=== PATIENT | male | born 1970 | race African-American/Black ===

== ENCOUNTER 2017-08-09 09:34 | Emergency (ER) | payer MEDICAID, OTHER ==
[~2017-08-09] VITALS: Ht 177.8 cm; Wt 84.4 kg
[~2017-08-09 09:34] MED LIST: EFAV1TAB PO
[2017-08-09 09:35] VITALS: BP 155/109
== END 2017-08-09 10:18 | disposition home or self-care (01) ==
LOC: ED 10:00
DX: K02.9 Dental caries, unspecified (principal); F17.200 Nicotine dependence, unspecified, uncomplicated
CPT/HCPCS: 99283

== ENCOUNTER 2017-11-21 09:36 | Inpatient (IN) | payer OTHER ==
[~2017-11-21] VITALS: Ht 177.8 cm; Wt 87.3 kg
[2017-11-21] MEDS ORDERED: SODIUM CHLORIDE 0.9% 1,000ML IVBOLUS ONE ×2 (10:30→12:00)
[2017-11-21] MEDS ORDERED: SODIUM CHLORIDE FLUSH 10ML SYR IVF ONE ×2 (10:30→12:00)
[2017-11-21 10:44] LABS: MEAN CORPUSCULAR HEMOGLOBIN 28.7 pg (27.5-34.5); MEAN CORPUSCULAR HGB CONC 33.7 g/dL (33.2-36.2); MEAN CORPUSCULAR VOLUME 85.3 fL (81-97); MEAN PLATELET VOLUME 7.5 fL (7.4-10.4); PLATELET COUNT 403 x10^3/uL (130-400); RED BLOOD COUNT 4.56 x10^6/uL (4.38-5.82); RED CELL DISTRIBUTION WIDTH 14.4 % (9.4-14.8)
[2017-11-21 10:57] LABS: ALANINE AMINOTRANSFERASE 31 U/L (12-78); ANION GAP 5 mmol/L (5-15); CALCIUM 8.3 mg/dL (8.5-10.1); CHLORIDE 106 mmol/L (98-107); CREATININE 1.02 mg/dL (0.7-1.3)
[2017-11-21 10:59] LABS: ALKALINE PHOSPHATASE 113 U/L (45-117); BILIRUBIN,TOTAL 0.5 mg/dL (0.2-1.0); TOTAL PROTEIN 8.1 g/dL (6.4-8.2)
[2017-11-21 11:02] LABS: BASOPHILS % (AUTO) 0 % (0-1); EOSINOPHILS # (AUTO) 0.09 x10^3/uL (0-0.4); EOSINOPHILS % (AUTO) 1 % (1-7); LYMPHOCYTES # (AUTO) 1.97 x10^3/uL (1-3.4); LYMPHOCYTES % (AUTO) 11 % (22-44); MD SCAN; MONOCYTES # (AUTO) 1.19 x10^3/uL (0.2-0.8); MONOCYTES % (AUTO) 7 % (2-9); NEUTROPHILS # (AUTO) 14.19 x10^3/uL (1.8-6.8); NEUTROPHILS % (AUTO) 81 % (42-75)
[2017-11-21] MEDS ORDERED: EMTR1TAB14 PO (11:28)
[2017-11-21] MEDS ORDERED: DOLU50TA PO (11:28)
[2017-11-21] MEDS ORDERED: SODIUM CHLORIDE 0.9% 1,000 ML IV ONE (11:56)
[2017-11-21] MEDS ORDERED: MORPHINE SULFATE 4 MG/ML, 1ML IVPush PRN (12:00)
[2017-11-21] MEDS ORDERED: ONDANSETRON 2MG/ML, 2ML IVPush ONE (12:00)
[2017-11-21] MEDS ORDERED: VANCOMYCIN PER PHARMACY IV ONE (12:00)
[2017-11-21] MEDS ORDERED: ONDANSETRON 2MG/ML, 2ML ONE (12:06)
[2017-11-21] MEDS ORDERED: MORPHINE SULFATE 4 MG/ML, 1ML ONE (12:06)
[2017-11-21] MEDS: ACETAMINOPHEN 325 MG TABLET PO PRN (12:20)
[2017-11-21] MEDS ORDERED: ACETAMINOPHEN 650 MG SUPP ONE (12:22)
[2017-11-21] MEDS ORDERED: ONDANSETRON 2MG/ML, 2ML IVPush PRN (12:30)
[2017-11-21] MEDS ORDERED: morphine SULFATE 10 MG/ML, 1ML IVPush PRN (12:30)
[2017-11-21] MEDS ORDERED: POLYETHYLENE GLYCOL 17 GM PACKET PO PRN (12:30)
[2017-11-21] MEDS ORDERED: PHARMACOKINETIC CONSULTATION MC ONE ×2 (12:30→14:00)
[2017-11-21] MEDS ORDERED: ACETAMINOPHEN 500 MG TABLET PO ONE (12:30)
[2017-11-21] MEDS ORDERED: BISACODYL 10 MG SUPP PR PRN (12:30)
[2017-11-21] MEDS ORDERED: ENALAPRILAT 1.25 MG/ML, 2ML IVPush PRN (12:30)
[2017-11-21] MEDS ORDERED: DOCUSATE 100 MG CAPSULE PO PRN (12:30)
[2017-11-21 12:47] LABS: HCT (SEDRATE) 38.9 % (39.2-51.8)
[2017-11-21] MEDS ORDERED: VANCOMYCIN 1,600 MG in SODIUM CHLORIDE 0.9% 250 ML IV ONE (13:00)
[2017-11-21] MEDS ORDERED: VANCOMYCIN PER PHARMACY MC PRN (13:00)
[2017-11-21 13:15] VITALS: BP 134/87
[2017-11-21] MEDS ORDERED: PHARMACOKINETIC MONITORING MC PRN (14:00)
[2017-11-21] MEDS: NS + 20MEQ KCL 1,000 ML IV SCH (15:06)
[2017-11-21] MEDS: PIPERACILLIN/TAZO/PMX 3.375GM 50 ML IV SCH ×2 (15:06→22:46)
[2017-11-21] MEDS ORDERED: MIDAZOLAM 1 MG/ML, 2ML ONE (17:37)
[2017-11-21] MEDS ORDERED: FENTANYL PF 100 MCG/2ML ONE (17:37)
[2017-11-21] MEDS ORDERED: OXYcodone 5 MG/5 ML ORAL.SOL UDC PO PRN (18:00)
[2017-11-21] MEDS ORDERED: ACETAMINOPHEN 325 MG TABLET PO PRN (18:00)
[2017-11-21] MEDS ORDERED: PROMETHAZINE 25 MG/ML, 1ML IV PRN (18:00)
[2017-11-21] MEDS ORDERED: HYDROmorphone 1 MG/ML, 1ML IV PRN (18:00)
[2017-11-21] MEDS ORDERED: FENTANYL PF 100 MCG/2ML IV PRN (18:00)
[2017-11-21] MEDS ORDERED: PROPOFOL 10 MG/ML, 20ML ONE ×2 (18:06)
[2017-11-21] MEDS ORDERED: HYDROmorphone 2 MG/ML, 1ML ONE ×3 (19:17→19:35)
[2017-11-21] MEDS ORDERED: OXYcodone 5 MG/5 ML ORAL.SOL UDC ONE (19:35)
[2017-11-21] MEDS ORDERED: ACETAMINOPHEN 650 MG/20.3 ML UDC ONE (19:35)
[2017-11-21 20:59] VITALS: BP 99/64
[2017-11-21] MEDS: HYDROcodone/APAP 5/325 TABLET PO PRN (22:46)
[2017-11-22 00:29] VITALS: BP 110/65
[2017-11-22] MEDS: VANCOMYCIN 1,600 MG in SODIUM CHLORIDE 0.9% 250 ML IV SCH ×2 (01:02→12:49)
[2017-11-22 04:34] VITALS: BP 104/68
[2017-11-22] MEDS: PIPERACILLIN/TAZO/PMX 3.375GM 50 ML IV SCH ×4 (05:17→22:28)
[2017-11-22 05:28] LABS: ALBUMIN 2.4 g/dL (3.4-5.0); ANION GAP 8 mmol/L (5-15); CHLORIDE 104 mmol/L (98-107)
[2017-11-22 05:32] LABS: ALANINE AMINOTRANSFERASE 20 U/L (12-78); ALKALINE PHOSPHATASE 91 U/L (45-117); BILIRUBIN,TOTAL 0.7 mg/dL (0.2-1.0); CREATININE 1.05 mg/dL (0.7-1.3)
[2017-11-22 05:39] LABS: MEAN CORPUSCULAR HEMOGLOBIN 29.1 pg (27.5-34.5); MEAN CORPUSCULAR HGB CONC 33.3 g/dL (33.2-36.2); MEAN CORPUSCULAR VOLUME 87.4 fL (81-97); MEAN PLATELET VOLUME 7.8 fL (7.4-10.4); PLATELET COUNT 341 x10^3/uL (130-400); RED BLOOD COUNT 3.94 x10^6/uL (4.38-5.82); RED CELL DISTRIBUTION WIDTH 13.9 % (9.4-14.8)
[2017-11-22 06:01] LABS: BASOPHILS # (AUTO) 0.05 x10^3/uL (0-0.1); BASOPHILS % (AUTO) 0 % (0-1); EOSINOPHILS # (AUTO) 0.09 x10^3/uL (0-0.4); EOSINOPHILS % (AUTO) 1 % (1-7); LYMPHOCYTES # (AUTO) 2.37 x10^3/uL (1-3.4); LYMPHOCYTES % (AUTO) 14 % (22-44); MD SCAN; MONOCYTES # (AUTO) 1.51 x10^3/uL (0.2-0.8); MONOCYTES % (AUTO) 9 % (2-9); NEUTROPHILS # (AUTO) 13.59 x10^3/uL (1.8-6.8); NEUTROPHILS % (AUTO) 77 % (42-75)
[2017-11-22 07:19] VITALS: BP 103/66
[2017-11-22] MEDS: ACETAMINOPHEN 325 MG TABLET PO PRN (07:30)
[2017-11-22] MEDS: NS + 20MEQ KCL 1,000 ML IV SCH ×2 (08:44→22:28)
[2017-11-22] MEDS: DOLUTEGRAVIR SODIUM HOMEMEDPO SCH (08:44)
[2017-11-22] MEDS: TIVICAY 50 MG HOMEMEDPO SCH (09:00)
[2017-11-22] MEDS: HYDROcodone/APAP 5/325 TABLET PO PRN ×2 (12:55→22:28)
[2017-11-22 13:02] VITALS: BP 113/73
[2017-11-22 19:20] VITALS: BP 126/77
[2017-11-23] MEDS: VANCOMYCIN 1,600 MG in SODIUM CHLORIDE 0.9% 250 ML IV SCH ×2 (00:47→13:00)
[2017-11-23 01:56] VITALS: BP 100/62
[2017-11-23] MEDS: PIPERACILLIN/TAZO/PMX 3.375GM 50 ML IV SCH ×4 (05:17→22:59)
[2017-11-23 05:27] LABS: BASOPHILS # (AUTO) 0.04 x10^3/uL (0-0.1); BASOPHILS % (AUTO) 0 % (0-1); EOSINOPHILS # (AUTO) 0.18 x10^3/uL (0-0.4); EOSINOPHILS % (AUTO) 1 % (1-7); LYMPHOCYTES # (AUTO) 2.18 x10^3/uL (1-3.4); LYMPHOCYTES % (AUTO) 14 % (22-44); MD NO; MEAN CORPUSCULAR HGB CONC 33.2 g/dL (33.2-36.2); MEAN CORPUSCULAR VOLUME 87.1 fL (81-97); MEAN PLATELET VOLUME 7.6 fL (7.4-10.4); MONOCYTES # (AUTO) 1.37 x10^3/uL (0.2-0.8); MONOCYTES % (AUTO) 9 % (2-9); NEUTROPHILS # (AUTO) 11.82 x10^3/uL (1.8-6.8); NEUTROPHILS % (AUTO) 76 % (42-75); PLATELET COUNT 371 x10^3/uL (130-400); RED CELL DISTRIBUTION WIDTH 13.8 % (9.4-14.8)
[2017-11-23 05:33] LABS: ANION GAP 7 mmol/L (5-15); CALCIUM 8.2 mg/dL (8.5-10.1); CHLORIDE 107 mmol/L (98-107); CREATININE 0.99 mg/dL (0.7-1.3)
[2017-11-23] MEDS: DOLUTEGRAVIR SODIUM HOMEMEDPO SCH (08:06)
[2017-11-23 08:25] VITALS: BP 121/72
[2017-11-23] MEDS: TIVICAY 50 MG HOMEMEDPO SCH (09:00)
[2017-11-23] MEDS: HYDROcodone/APAP 5/325 TABLET PO PRN ×2 (11:04→19:16)
[2017-11-23] MEDS ORDERED: VANCOMYCIN 1,800 MG in SODIUM CHLORIDE 0.9% 250 ML IV SCH (13:30)
[2017-11-23] MEDS: NS + 20MEQ KCL 1,000 ML IV SCH (14:25)
[2017-11-23 14:48] VITALS: BP 107/70
[2017-11-23] MEDS: VANCOMYCIN 1,800 MG in SODIUM CHLORIDE 0.9% 250 ML IV SCH (15:33)
[2017-11-23 18:51] VITALS: BP 145/78
[2017-11-24] MEDS: NS + 20MEQ KCL 1,000 ML IV SCH ×2 (01:33→15:13)
[2017-11-24 03:47] VITALS: BP 129/74
[2017-11-24] MEDS: VANCOMYCIN 1,800 MG in SODIUM CHLORIDE 0.9% 250 ML IV SCH ×2 (03:50→15:25)
[2017-11-24] MEDS: HYDROcodone/APAP 5/325 TABLET PO PRN ×3 (03:53→21:48)
[2017-11-24] MEDS: PIPERACILLIN/TAZO/PMX 3.375GM 50 ML IV SCH ×3 (05:32→17:30)
[2017-11-24 05:51] LABS: CHLORIDE 107 mmol/L (98-107); HCT (SEDRATE) 33.8 % (39.2-51.8)
[2017-11-24 05:53] LABS: MEAN CORPUSCULAR HEMOGLOBIN 29.1 pg (27.5-34.5); MEAN CORPUSCULAR HGB CONC 33.3 g/dL (33.2-36.2); MEAN CORPUSCULAR VOLUME 87.2 fL (81-97); MEAN PLATELET VOLUME 7.6 fL (7.4-10.4); PLATELET COUNT 430 x10^3/uL (130-400); RED BLOOD COUNT 3.86 x10^6/uL (4.38-5.82); RED CELL DISTRIBUTION WIDTH 13.7 % (9.4-14.8)
[2017-11-24 06:05] LABS: ALANINE AMINOTRANSFERASE 15 U/L (12-78); ALBUMIN 2.1 g/dL (3.4-5.0); ALKALINE PHOSPHATASE 107 U/L (45-117); ANION GAP 7 mmol/L (5-15); BILIRUBIN,TOTAL 0.4 mg/dL (0.2-1.0); CREATININE 0.98 mg/dL (0.7-1.3)
[2017-11-24 06:32] LABS: BASOPHILS # (AUTO) 0.02 x10^3/uL (0-0.1); BASOPHILS % (AUTO) 0 % (0-1); EOSINOPHILS # (AUTO) 0.19 x10^3/uL (0-0.4); EOSINOPHILS % (AUTO) 1 % (1-7); LYMPHOCYTES # (AUTO) 2.49 x10^3/uL (1-3.4); LYMPHOCYTES % (AUTO) 16 % (22-44); MD SCAN; MONOCYTES # (AUTO) 1.13 x10^3/uL (0.2-0.8); MONOCYTES % (AUTO) 7 % (2-9); NEUTROPHILS # (AUTO) 11.45 x10^3/uL (1.8-6.8); NEUTROPHILS % (AUTO) 75 % (42-75)
[2017-11-24 06:55] VITALS: BP 113/72
[2017-11-24] MEDS: TIVICAY 50 MG HOMEMEDPO SCH (08:47)
[2017-11-24] MEDS: DOLUTEGRAVIR SODIUM HOMEMEDPO SCH (08:47)
[2017-11-24 13:40] VITALS: BP 122/75
[2017-11-24] MEDS: CLINDAMYCIN PMX 900MG/50ML 50 ML IV SCH (21:00)
[2017-11-24] MEDS: AMPICILLIN/SULBACTAM 3 GM in SODIUM CHLORIDE 0.9% 100 ML IV SCH (21:48)
[2017-11-24 22:55] VITALS: BP 123/79
[2017-11-25 01:49] VITALS: BP 111/69
[2017-11-25] MEDS: AMPICILLIN/SULBACTAM 3 GM in SODIUM CHLORIDE 0.9% 100 ML IV SCH ×4 (03:14→21:24)
[2017-11-25] MEDS: CLINDAMYCIN PMX 900MG/50ML 50 ML IV SCH ×3 (06:24→22:04)
[2017-11-25 08:20] VITALS: BP 120/73
[2017-11-25] MEDS: HYDROcodone/APAP 5/325 TABLET PO PRN ×2 (08:29→14:23)
[2017-11-25] MEDS: DOLUTEGRAVIR SODIUM HOMEMEDPO SCH (09:46)
[2017-11-25 13:00] VITALS: BP 126/76
[2017-11-25] MEDS ORDERED: NS + 20MEQ KCL 1,000 ML IV SCH (13:12)
[2017-11-25] MEDS ORDERED: MORPHINE SULFATE 4 MG/ML, 1ML ONE (16:16)
[2017-11-25] MEDS ORDERED: MORPHINE SULFATE 4 MG/ML, 1ML IVPush PRN (16:30)
[2017-11-25] MEDS ORDERED: morphine SULFATE ORAL.CONC 20 MG/ML PO PRN (16:30)
[2017-11-25] MEDS: KETOROLAC 30 MG/1 ML IVPush SCH ×3 (17:00→23:28)
[2017-11-25] MEDS: ENOXAPARIN 40 MG/0.4 ML SQ SCH (18:31)
[2017-11-25 20:07] VITALS: BP 129/74
[2017-11-26 01:37] VITALS: BP 128/78
[2017-11-26] MEDS: AMPICILLIN/SULBACTAM 3 GM in SODIUM CHLORIDE 0.9% 100 ML IV SCH ×4 (03:00→22:22)
[2017-11-26] MEDS: KETOROLAC 30 MG/1 ML IVPush SCH ×4 (04:47→22:30)
[2017-11-26] MEDS: CLINDAMYCIN PMX 900MG/50ML 50 ML IV SCH ×2 (05:00→17:53)
[2017-11-26 06:18] LABS: BASOPHILS # (AUTO) 0.05 x10^3/uL (0-0.1); BASOPHILS % (AUTO) 1 % (0-1); EOSINOPHILS # (AUTO) 0.38 x10^3/uL (0-0.4); EOSINOPHILS % (AUTO) 3 % (1-7); LYMPHOCYTES # (AUTO) 2.33 x10^3/uL (1-3.4); LYMPHOCYTES % (AUTO) 20 % (22-44); MD NO; MEAN CORPUSCULAR HEMOGLOBIN 28.7 pg (27.5-34.5); MEAN CORPUSCULAR HGB CONC 33.5 g/dL (33.2-36.2); MEAN CORPUSCULAR VOLUME 85.7 fL (81-97); MEAN PLATELET VOLUME 7.3 fL (7.4-10.4); MONOCYTES # (AUTO) 0.85 x10^3/uL (0.2-0.8); MONOCYTES % (AUTO) 7 % (2-9); NEUTROPHILS # (AUTO) 7.86 x10^3/uL (1.8-6.8); NEUTROPHILS % (AUTO) 69 % (42-75); PLATELET COUNT 535 x10^3/uL (130-400); RED BLOOD COUNT 4.44 x10^6/uL (4.38-5.82); RED CELL DISTRIBUTION WIDTH 14.3 % (9.4-14.8)
[2017-11-26 07:13] VITALS: BP 100/67
[2017-11-26] MEDS: DOLUTEGRAVIR SODIUM HOMEMEDPO SCH (09:17)
[2017-11-26 16:51] VITALS: BP 129/78
[2017-11-26] MEDS: ENOXAPARIN 40 MG/0.4 ML SQ SCH (17:52)
[2017-11-26] MEDS ORDERED: SODIUM CHLORIDE FLUSH 10ML SYR IVF PRN (18:00)
[2017-11-26] MEDS ORDERED: PICC FLUSH PROTOCOL XX PRN (18:00)
[2017-11-26] MEDS ORDERED: MIDAZOLAM 1 MG/ML, 2ML ONE (20:49)
[2017-11-26] MEDS ORDERED: SUFentanil 50 MCG/ML, 1ML ONE (20:50)
[2017-11-26] MEDS ORDERED: SODIUM CHLORIDE 0.9% PF 10ML ONE (20:50)
[2017-11-26] MEDS ORDERED: PROPOFOL 10 MG/ML, 20ML ONE (20:51)
[2017-11-26] MEDS ORDERED: LIDOCAINE-MPF 2% ,5ML ONE (20:51)
[2017-11-26] MEDS ORDERED: KETAMINE 10 MG/ML, 20ML ONE (21:00)
[2017-11-26] MEDS ORDERED: ACETAMINOPHEN 650 MG/20.3 ML UDC ONE (21:40)
[2017-11-26] MEDS ORDERED: OXYcodone 5 MG/5 ML ORAL.SOL UDC ONE (21:40)
[2017-11-26] MEDS ORDERED: ACETAMINOPHEN 325 MG TABLET PO PRN (22:00)
[2017-11-26] MEDS ORDERED: PROMETHAZINE 12.5 MG SUPP PR PRN (22:00)
[2017-11-26] MEDS ORDERED: MEPERIDINE/PF 25MG/0.5ML IVPush PRN (22:00)
[2017-11-26] MEDS ORDERED: LORazepam 2 MG/ML, 1ML IVPush PRN (22:00)
[2017-11-26] MEDS ORDERED: FENTANYL PF 100 MCG/2ML IV PRN (22:00)
[2017-11-26] MEDS ORDERED: ONDANSETRON 2MG/ML, 2ML IVPush PRN (22:00)
[2017-11-26] MEDS ORDERED: OXYcodone 5 MG/5 ML ORAL.SOL UDC PO PRN (22:00)
[2017-11-26] MEDS ORDERED: HYDROmorphone 1 MG/ML, 1ML IV PRN (22:00)
[2017-11-26 22:31] VITALS: BP 132/84
[2017-11-27 00:10] VITALS: BP 123/74
[2017-11-27] MEDS: CLINDAMYCIN PMX 900MG/50ML 50 ML IV SCH ×2 (01:01→09:41)
[2017-11-27 03:46] VITALS: BP 108/71
[2017-11-27] MEDS: AMPICILLIN/SULBACTAM 3 GM in SODIUM CHLORIDE 0.9% 100 ML IV SCH ×4 (04:02→23:17)
[2017-11-27] MEDS: KETOROLAC 30 MG/1 ML IVPush SCH (05:00)
[2017-11-27 05:48] LABS: ANION GAP 9 mmol/L (5-15); CALCIUM 8.5 mg/dL (8.5-10.1); CHLORIDE 105 mmol/L (98-107)
[2017-11-27 05:50] LABS: BASOPHILS # (AUTO) 0.01 x10^3/uL (0-0.1); BASOPHILS % (AUTO) 0 % (0-1); EOSINOPHILS # (AUTO) 0.44 x10^3/uL (0-0.4); EOSINOPHILS % (AUTO) 5 % (1-7); LYMPHOCYTES # (AUTO) 1.88 x10^3/uL (1-3.4); LYMPHOCYTES % (AUTO) 21 % (22-44); MD NO; MEAN CORPUSCULAR HEMOGLOBIN 28.9 pg (27.5-34.5); MEAN CORPUSCULAR HGB CONC 33.5 g/dL (33.2-36.2); MEAN CORPUSCULAR VOLUME 86.3 fL (81-97); MONOCYTES # (AUTO) 0.54 x10^3/uL (0.2-0.8); MONOCYTES % (AUTO) 6 % (2-9); NEUTROPHILS # (AUTO) 6.17 x10^3/uL (1.8-6.8); NEUTROPHILS % (AUTO) 68 % (42-75); PLATELET COUNT 537 x10^3/uL (130-400); RED BLOOD COUNT 4.08 x10^6/uL (4.38-5.82)
[2017-11-27 05:51] LABS: CREATININE 1.23 mg/dL (0.7-1.3)
[2017-11-27 07:55] VITALS: BP 123/80
[2017-11-27] MEDS: DOLUTEGRAVIR SODIUM HOMEMEDPO SCH (09:41)
[2017-11-27] MEDS: ACETAMINOPHEN 325 MG TABLET PO PRN ×2 (10:00→18:51)
[2017-11-27] MEDS ORDERED: KETOROLAC 30 MG/1 ML IVPush PRN (11:00)
[2017-11-27 14:12] VITALS: BP 123/76
[2017-11-27] MEDS: ENOXAPARIN 40 MG/0.4 ML SQ SCH (17:45)
[2017-11-27 21:10] VITALS: BP 136/87
[2017-11-28 02:58] VITALS: BP 119/79
[2017-11-28] MEDS: AMPICILLIN/SULBACTAM 3 GM in SODIUM CHLORIDE 0.9% 100 ML IV SCH ×4 (05:29→23:05)
[2017-11-28 05:51] LABS: ANION GAP 6 mmol/L (5-15); CHLORIDE 103 mmol/L (98-107)
[2017-11-28 05:53] LABS: BASOPHILS % (AUTO) 1 % (0-1); CREATININE 1.07 mg/dL (0.7-1.3); EOSINOPHILS # (AUTO) 0.52 x10^3/uL (0-0.4); EOSINOPHILS % (AUTO) 5 % (1-7); LYMPHOCYTES # (AUTO) 2.36 x10^3/uL (1-3.4); LYMPHOCYTES % (AUTO) 24 % (22-44); MD NO; MEAN CORPUSCULAR HEMOGLOBIN 28.8 pg (27.5-34.5); MEAN CORPUSCULAR HGB CONC 33.4 g/dL (33.2-36.2); MEAN CORPUSCULAR VOLUME 86.1 fL (81-97); MONOCYTES # (AUTO) 0.66 x10^3/uL (0.2-0.8); MONOCYTES % (AUTO) 7 % (2-9); NEUTROPHILS # (AUTO) 6.28 x10^3/uL (1.8-6.8); NEUTROPHILS % (AUTO) 63 % (42-75); PLATELET COUNT 611 x10^3/uL (130-400); RED BLOOD COUNT 4.44 x10^6/uL (4.38-5.82); RED CELL DISTRIBUTION WIDTH 14.1 % (9.4-14.8)
[2017-11-28 07:34] VITALS: BP 128/80
[2017-11-28] MEDS: DOLUTEGRAVIR SODIUM HOMEMEDPO SCH (09:00)
[2017-11-28] MEDS: ACETAMINOPHEN 325 MG TABLET PO PRN (10:50)
[2017-11-28 13:10] VITALS: BP 117/82
[2017-11-28] MEDS: ENOXAPARIN 40 MG/0.4 ML SQ SCH (17:03)
[2017-11-28 20:13] VITALS: BP 128/71
[2017-11-29 02:22] VITALS: BP 106/70
[2017-11-29] MEDS: AMPICILLIN/SULBACTAM 3 GM in SODIUM CHLORIDE 0.9% 100 ML IV SCH ×4 (05:10→22:44)
[2017-11-29 06:31] VITALS: BP 112/68
[2017-11-29] MEDS: DOLUTEGRAVIR SODIUM HOMEMEDPO SCH (09:00)
[2017-11-29 14:04] VITALS: BP 123/79
[2017-11-29] MEDS: ENOXAPARIN 40 MG/0.4 ML SQ SCH (17:31)
[2017-11-29 19:55] VITALS: BP 119/73
[2017-11-30 00:57] VITALS: BP 109/69
[2017-11-30] MEDS: AMPICILLIN/SULBACTAM 3 GM in SODIUM CHLORIDE 0.9% 100 ML IV SCH ×4 (05:24→22:40)
[2017-11-30] MEDS: DOLUTEGRAVIR SODIUM HOMEMEDPO SCH (09:00)
[2017-11-30 09:15] VITALS: BP 126/76
[2017-11-30 12:37] VITALS: BP 119/73
[2017-11-30] MEDS: ENOXAPARIN 40 MG/0.4 ML SQ SCH (17:30)
[2017-11-30 20:16] VITALS: BP 120/72
[2017-12-01 03:20] VITALS: BP 106/70
[2017-12-01] MEDS: AMPICILLIN/SULBACTAM 3 GM in SODIUM CHLORIDE 0.9% 100 ML IV SCH (05:17)
[2017-12-01 07:48] VITALS: BP 110/74
[2017-12-01] MEDS: AMOXICILLIN/CLAV 875-125MG TABLET PO SCH ×3 (08:37→23:38)
[2017-12-01] MEDS: DOLUTEGRAVIR SODIUM HOMEMEDPO SCH (08:38)
[2017-12-01] MEDS: ENOXAPARIN 40 MG/0.4 ML SQ SCH (08:41)
[2017-12-01] MEDS: ACETAMINOPHEN 325 MG TABLET PO PRN (14:07)
[2017-12-01 14:10] VITALS: BP 118/72
[2017-12-01 19:31] VITALS: BP 123/76
[2017-12-02 01:14] VITALS: BP 105/62
[2017-12-02 05:33] LABS: BASOPHILS # (AUTO) 0.22 x10^3/uL (0-0.1); BASOPHILS % (AUTO) 3 % (0-1); EOSINOPHILS # (AUTO) 0.26 x10^3/uL (0-0.4); EOSINOPHILS % (AUTO) 3 % (1-7); LYMPHOCYTES % (AUTO) 35 % (22-44); MD NO; MEAN CORPUSCULAR HEMOGLOBIN 28.8 pg (27.5-34.5); MEAN CORPUSCULAR HGB CONC 33.4 g/dL (33.2-36.2); MEAN CORPUSCULAR VOLUME 86.1 fL (81-97); MONOCYTES # (AUTO) 0.73 x10^3/uL (0.2-0.8); MONOCYTES % (AUTO) 10 % (2-9); NEUTROPHILS # (AUTO) 3.76 x10^3/uL (1.8-6.8); NEUTROPHILS % (AUTO) 49 % (42-75); PLATELET COUNT 616 x10^3/uL (130-400); RED BLOOD COUNT 4.47 x10^6/uL (4.38-5.82); RED CELL DISTRIBUTION WIDTH 14.1 % (9.4-14.8)
[2017-12-02 05:39] LABS: CHLORIDE 107 mmol/L (98-107)
[2017-12-02 05:44] LABS: ALANINE AMINOTRANSFERASE 49 U/L (12-78); ALBUMIN 2.9 g/dL (3.4-5.0); ALKALINE PHOSPHATASE 109 U/L (45-117); ANION GAP 7 mmol/L (5-15); BILIRUBIN,TOTAL 0.4 mg/dL (0.2-1.0); CREATININE 1.09 mg/dL (0.7-1.3); TOTAL PROTEIN 8.8 g/dL (6.4-8.2)
[2017-12-02 08:26] VITALS: BP 113/75
[2017-12-02] MEDS: DOLUTEGRAVIR SODIUM HOMEMEDPO SCH (09:00)
[2017-12-02] MEDS: AMOXICILLIN/CLAV 875-125MG TABLET PO SCH ×2 (09:11→15:46)
[2017-12-02 13:26] VITALS: BP 135/87
[2017-12-02] MEDS ORDERED: AMOX1TAB12 PO (14:18)
[2017-12-02 15:07] VITALS: BP 115/65
== END 2017-12-02 16:06 | disposition home or self-care (01) | DRG 853 ==
LOC: ED 11:58 → EDIP 11:59 → ED 12:41 → 4NOR 13:01
PROVIDERS: ADMIT Internal Medicine; ATTEND Internal Medicine
PROC: 0JBN0ZZ Excision of Right Lower Leg Subcutaneous Tissue and Fascia, Open Approach (ICD-10-PCS; 2017-11-21)
PROC: 0JBP0ZZ Excision of Left Lower Leg Subcutaneous Tissue and Fascia, Open Approach (ICD-10-PCS; principal; 2017-11-21 18:00)
PROC: 02HV33Z Insertion of Infusion Device into Superior Vena Cava, Percutaneous Approach (ICD-10-PCS; 2017-11-26)
PROC: B5181ZA Fluoroscopy of Superior Vena Cava using Low Osmolar Contrast, Guidance (ICD-10-PCS; 2017-11-26)
PROC: B548ZZA Ultrasonography of Superior Vena Cava, Guidance (ICD-10-PCS; 2017-11-26)
DX: A41.9 Sepsis, unspecified organism (principal); A48.0 Gas gangrene; M72.6 Necrotizing fasciitis; E44.0 Moderate protein-calorie malnutrition; E87.1 Hypo-osmolality and hyponatremia; F15.20 Other stimulant dependence, uncomplicated; L02.415 Cutaneous abscess of right lower limb; L02.416 Cutaneous abscess of left lower limb; L03.115 Cellulitis of right lower limb; L03.116 Cellulitis of left lower limb; F17.210 Nicotine dependence, cigarettes, uncomplicated; Z66 Do not resuscitate; B19.20 Unspecified viral hepatitis C without hepatic coma; D64.9 Anemia, unspecified; Z68.27 Body mass index [BMI] 27.0-27.9, adult; Z82.49 Family history of ischemic heart disease and other diseases of the circulatory system; Z83.3 Family history of diabetes mellitus; Z86.14 Personal history of Methicillin resistant Staphylococcus aureus infection; Z91.19 Patient's noncompliance with other medical treatment and regimen
CPT/HCPCS: 36415; 36569; 76937; 77001; 80048; 80053; 80202; 83605; 84145; 85025; 85651; 86140; 86361; 87040; 87070; 87075; 87077; 87147; 87186; 87205; 87536; 99285; J0295; J1170; J1650; J1885; J2250; J2543; J2704; J3010; J3370; J3480; J3490; C1751; J7030; J7050

== ENCOUNTER 2018-09-25 09:01 | Emergency (ER) | payer MEDICAID, OTHER ==
[~2018-09-25] VITALS: Ht 177.8 cm; Wt 87.3 kg
[~2018-09-25 09:01] MED LIST changes: +AMOX1TAB12 PO; +DOLU50TA PO; +EMTR1TAB14 PO
[2018-09-25 09:10] VITALS: BP 145/84
[2018-09-25] MEDS ORDERED: CLINDAMYCIN 150 MG/ML, 6ML IM ONE (09:30)
[2018-09-25] MEDS ORDERED: CLINDAMYCIN 150 MG/ML, 6ML ONE (09:36)
[2018-09-25] MEDS ORDERED: BACITRACIN ZINC OINT 500U/GM, 0.9 GM ONE (09:38)
== END 2018-09-25 10:46 | disposition home or self-care (01) ==
LOC: ED 09:45
DX: L03.113 Cellulitis of right upper limb (principal); F17.200 Nicotine dependence, unspecified, uncomplicated; Z21 Asymptomatic human immunodeficiency virus [HIV] infection status
CPT/HCPCS: 96372; 99283; S0077

== ENCOUNTER 2019-02-28 07:04 | Emergency (ER) | payer MEDICAID, OTHER ==
[~2019-02-28] VITALS: Ht 157.5 cm; Wt 91.0 kg
--- NOTE | 2019-02-28 07:30 | NUR ---
Assumed care of patient. 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 Will continue to monitor.
[2019-02-28 08:18] VITALS: BP 121/77
--- NOTE | 2019-02-28 08:19 | NUR ---
Ambulated with a steady gait to the restroom.
[2019-02-28 08:21] LABS: BASOPHILS % (AUTO) 2 % (0-1); EOSINOPHILS % (AUTO) 2 % (1-7); LYMPHOCYTES # (AUTO) 2.48 x10^3/uL (1-3.4); LYMPHOCYTES % (AUTO) 37 % (22-44); MD NO; MEAN CORPUSCULAR HEMOGLOBIN 29.5 pg (27.5-34.5); MEAN CORPUSCULAR HGB CONC 32.5 g/dL (33.2-36.2); MEAN CORPUSCULAR VOLUME 90.8 fL (81-97); MEAN PLATELET VOLUME 7.7 fL (7.4-10.4); MONOCYTES # (AUTO) 0.89 x10^3/uL (0.2-0.8); MONOCYTES % (AUTO) 13 % (2-9); NEUTROPHILS # (AUTO) 3.19 x10^3/uL (1.8-6.8); NEUTROPHILS % (AUTO) 47 % (42-75); PLATELET COUNT 315 x10^3/uL (130-400); RED BLOOD COUNT 4.55 x10^6/uL (4.38-5.82); RED CELL DISTRIBUTION WIDTH 12.6 % (9.4-14.8)
[2019-02-28] MEDS ORDERED: CLINDAMYCIN 300 MG CAPSULE PO ONE ×2 (08:30)
[2019-02-28] MEDS ORDERED: CLINDAMYCIN 300 MG CAPSULE ONE (08:32)
--- NOTE | 2019-02-28 08:36 | NUR ---
Abx admin. No other needs at this time.
[2019-02-28 08:38] LABS: ALANINE AMINOTRANSFERASE 49 U/L (12-78); ALBUMIN 3.4 g/dL (3.4-5.0); ANION GAP 5 mmol/L (5-15); CALCIUM 8.3 mg/dL (8.5-10.1); CHLORIDE 108 mmol/L (98-107); CREATININE 1.25 mg/dL (0.7-1.3)
[2019-02-28 08:40] LABS: ALKALINE PHOSPHATASE 118 U/L (45-117); TOTAL PROTEIN 7.5 g/dL (6.4-8.2)
[2019-02-28 08:44] LABS: BILIRUBIN,TOTAL < 0.1 mg/dL (0.2-1.0)
== END 2019-02-28 09:28 | disposition home or self-care (01) ==
LOC: ED 09:26
DX: L03.115 Cellulitis of right lower limb (principal); L03.116 Cellulitis of left lower limb; Z86.19 Personal history of other infectious and parasitic diseases
CPT/HCPCS: 36415; 80053; 85025; 99284

== ENCOUNTER 2019-07-26 01:32 | Emergency (ER) | payer OTHER ==
[~2019-07-26] VITALS: Ht 177.8 cm; Wt 83.7 kg
[2019-07-26] MEDS ORDERED: ONDANSETRON 2MG/ML, 2ML IVPush ONE (02:00)
[2019-07-26] MEDS ORDERED: SODIUM CHLORIDE 0.9% 1,000ML IVBOLUS ONE (02:00)
[2019-07-26] MEDS ORDERED: MAALOX/HYOSCYAMINE/LIDOCAINE 45 ML BTL PO ONE (02:00)
[2019-07-26] MEDS ORDERED: MAALOX/HYOSCYAMINE/LIDOCAINE 45 ML BTL ONE (02:12)
[2019-07-26] MEDS ORDERED: ONDANSETRON 2MG/ML, 2ML ONE (02:12)
[2019-07-26 02:15] LABS: BASOPHILS # (AUTO) 0.05 x10^3/uL (0-0.1); BASOPHILS % (AUTO) 1 % (0-1); EOSINOPHILS # (AUTO) 0.43 x10^3/uL (0-0.4); EOSINOPHILS % (AUTO) 8 % (1-7); LYMPHOCYTES # (AUTO) 2.22 x10^3/uL (1-3.4); LYMPHOCYTES % (AUTO) 42 % (22-44); MD NO; MEAN CORPUSCULAR HEMOGLOBIN 29.1 pg (27.5-34.5); MEAN CORPUSCULAR HGB CONC 33.1 g/dL (33.2-36.2); MEAN CORPUSCULAR VOLUME 87.9 fL (81-97); MEAN PLATELET VOLUME 7.5 fL (7.4-10.4); MONOCYTES # (AUTO) 0.55 x10^3/uL (0.2-0.8); MONOCYTES % (AUTO) 11 % (2-9); NEUTROPHILS # (AUTO) 1.98 x10^3/uL (1.8-6.8); NEUTROPHILS % (AUTO) 38 % (42-75); PLATELET COUNT 380 x10^3/uL (130-400); RED BLOOD COUNT 5.72 x10^6/uL (4.38-5.82); RED CELL DISTRIBUTION WIDTH 13.3 % (9.4-14.8)
[2019-07-26 02:28] LABS: ALANINE AMINOTRANSFERASE 44 U/L (12-78); ALBUMIN 3.8 g/dL (3.4-5.0); ANION GAP 4 mmol/L (5-15); CALCIUM 8.9 mg/dL (8.5-10.1); CHLORIDE 105 mmol/L (98-107); CREATININE 1.32 mg/dL (0.7-1.3)
[2019-07-26 02:30] LABS: ALKALINE PHOSPHATASE 124 U/L (45-117); BILIRUBIN,TOTAL 0.3 mg/dL (0.2-1.0); TOTAL PROTEIN 9.6 g/dL (6.4-8.2)
[2019-07-26 03:46] VITALS: BP 101/75
--- NOTE | 2019-07-26 03:48 | NUR ---
REVIEWED DISCHARGE INSTRUCTIONS AND PRINTED PRESCRIPTION X 1 W/ PT, VERBALIZED UNDERSTANDING TO INFORMATION PROVIDED INCLUDING FOLLOW UP CARE, RETURN PRECAUTIONS AND MEDICATION. PT DENIED QUESTIONS/CONCERNS. PT REPORTED STILL FELT NAUSEATED, WAS ABLE TO DRINK A CUP OF WATER PRIOR TO DISCHARGE. PT DENIED C/O PAIN AT TIME OF DISCHARGE. PT AMBULATED FROM ED.
== END 2019-07-26 03:52 | disposition home or self-care (01) ==
LOC: ED 03:30
DX: R11.2 Nausea with vomiting, unspecified (principal); R19.7 Diarrhea, unspecified; F17.200 Nicotine dependence, unspecified, uncomplicated; Z21 Asymptomatic human immunodeficiency virus [HIV] infection status
CPT/HCPCS: 36415; 80053; 83690; 85025; 96374; 99283; J2405

== ENCOUNTER 2019-11-28 18:43 | Emergency (ER) | payer OTHER ==
[~2019-11-28] VITALS: Ht 177.8 cm; Wt 88.7 kg
--- NOTE | 2019-11-28 19:06 | NUR ---
Patient presents to ER c/o abd cramping and loose stools x24 hrs. Patient states this has happened before and was dx with some kind of "itis." Patient denies N/V or fevers. Patient is HIV positive; he states he is compliant with his medications. He does not remember the name of his meds. Patient is in NAD. Respirations even and unlabored.
[2019-11-28 19:26] LABS: BASOPHILS # (AUTO) 0.02 x10^3/uL (0-0.1); BASOPHILS % (AUTO) 0 % (0-1); EOSINOPHILS # (AUTO) 0.25 x10^3/uL (0-0.4); EOSINOPHILS % (AUTO) 4 % (1-7); LYMPHOCYTES % (AUTO) 39 % (22-44); MD NO; MEAN CORPUSCULAR HEMOGLOBIN 28.8 pg (27.5-34.5); MEAN CORPUSCULAR VOLUME 87.4 fL (81-97); MEAN PLATELET VOLUME 7.4 fL (7.4-10.4); MONOCYTES # (AUTO) 0.59 x10^3/uL (0.2-0.8); MONOCYTES % (AUTO) 9 % (2-9); NEUTROPHILS # (AUTO) 3.37 x10^3/uL (1.8-6.8); NEUTROPHILS % (AUTO) 49 % (42-75); PLATELET COUNT 405 x10^3/uL (130-400); RED BLOOD COUNT 5.26 x10^6/uL (4.38-5.82); RED CELL DISTRIBUTION WIDTH 14.4 % (9.4-14.8)
[2019-11-28 19:31] LABS: ALBUMIN 3.6 g/dL (3.4-5.0); ANION GAP 7 mmol/L (5-15); CALCIUM 8.7 mg/dL (8.5-10.1); CHLORIDE 107 mmol/L (98-107); CREATININE 1.11 mg/dL (0.7-1.3)
[2019-11-28 20:16] VITALS: BP 118/72
--- NOTE | 2019-11-28 20:18 | NUR ---
Patient discharge instructions given. All questions and concerns addressed. Patient ambulatory with a steady gait. Belongings with patient.
== END 2019-11-28 20:20 | disposition home or self-care (01) ==
LOC: ED 19:30
DX: R19.7 Diarrhea, unspecified (principal); R11.2 Nausea with vomiting, unspecified; R10.9 Unspecified abdominal pain
CPT/HCPCS: 36415; 80048; 82040; 85025; 99283

== ENCOUNTER 2020-01-22 03:42 | Emergency (ER) | payer OTHER ==
[~2020-01-22] VITALS: Ht 177.8 cm; Wt 87.0 kg
[2020-01-22 03:48] VITALS: BP 119/79
--- NOTE | 2020-01-22 04:29 | NUR ---
PT TO RM 14 FROM [facility].
[2020-01-22] MEDS ORDERED: SODIUM CHLORIDE FLUSH 10ML SYR IVF ONE (05:00)
[2020-01-22] MEDS ORDERED: CLINDAMYCIN 150 MG/ML, 6ML IV ONE (05:00)
[2020-01-22] MEDS ORDERED: KETOROLAC 30 MG/1 ML IVPush ONE (05:00)
[2020-01-22] MEDS ORDERED: OMNIPAQUE 350 MG/ML, 100ML BOTTLE ONE (05:00)
--- NOTE | 2020-01-22 05:01 | NUR ---
PT IN [facility] RESTING COMFORTABLY AT THIS TIME. IV ACCESS ESTABLISHED USING US MACHINE. LABS DRAWN AND SENT TO LAB. PT HAS CALL LIGHT WITHIN REACH AT THIS TIME AND VERBALIZES UNDERSTANDING OF CARE.
[2020-01-22] MEDS ORDERED: CLINDAMYCIN PMX 600MG/50ML 50 ML ONE (05:08)
[2020-01-22] MEDS ORDERED: KETOROLAC 30 MG/1 ML ONE (05:08)
[2020-01-22 05:15] LABS: BASOPHILS # (AUTO) 0.02 x10^3/uL (0-0.1); BASOPHILS % (AUTO) 0 % (0-1); EOSINOPHILS % (AUTO) 1 % (1-7); LYMPHOCYTES # (AUTO) 3.23 x10^3/uL (1-3.4); LYMPHOCYTES % (AUTO) 40 % (22-44); MD NO; MEAN CORPUSCULAR HEMOGLOBIN 28.9 pg (27.5-34.5); MEAN CORPUSCULAR HGB CONC 33.3 g/dL (33.2-36.2); MEAN PLATELET VOLUME 7.2 fL (7.4-10.4); MONOCYTES # (AUTO) 0.76 x10^3/uL (0.2-0.8); MONOCYTES % (AUTO) 10 % (2-9); NEUTROPHILS # (AUTO) 3.93 x10^3/uL (1.8-6.8); NEUTROPHILS % (AUTO) 49 % (42-75); PLATELET COUNT 384 x10^3/uL (130-400); RED BLOOD COUNT 4.78 x10^6/uL (4.38-5.82); RED CELL DISTRIBUTION WIDTH 13.7 % (9.4-14.8)
--- NOTE | 2020-01-22 05:22 | NUR ---
PT MEDICATED PER NOV. PT RESTING COMFORTABLY IN [facility] WITH WARM BLANKET. CALL LIGHT IS WITHIN REACH.
[2020-01-22 05:28] LABS: ANION GAP 7 mmol/L (5-15); CALCIUM 8.8 mg/dL (8.5-10.1); CHLORIDE 105 mmol/L (98-107); CREATININE 1.18 mg/dL (0.7-1.3)
[2020-01-22] MEDS ORDERED: CLINDAMYCIN PMX 600MG/50ML 50 ML IV ONE (05:30)
--- NOTE | 2020-01-22 06:00 | NUR ---
PT BACK TO ROOM VIA [place] FROM CT.
[2020-01-22] MEDS ORDERED: LIDOCAINE-MPF 1%, 5ML ONE (06:43)
[2020-01-22] MEDS ORDERED: LIDOCAINE-MPF 1%, 5ML INFIL ONE (07:00)
--- NOTE | 2020-01-22 07:06 | NUR ---
FORTINO HUSTON AT BEDSIDE TO DRAIN ABCESS. DISCHARGE INSTRUCTIONS REVIEWED
== END 2020-01-22 07:45 | disposition home or self-care (01) ==
LOC: ED 04:46
DX: K04.7 Periapical abscess without sinus (principal)
CPT/HCPCS: 36415; 41800; 70487; 80048; 82040; 85025; 96365; 96375; 99285; J1885; Q9967

== ENCOUNTER 2020-04-09 02:35 | Emergency (ER) | payer OTHER ==
[~2020-04-09] VITALS: Ht 177.8 cm; Wt 89.8 kg
--- NOTE | 2020-04-09 02:52 | NUR ---
TASK RN: FIRST PT CONTACT: PT RESTING IN [employer], PLAYING ON PHONE, APPEARS COMFORTABLE. PT STATES HE CAME IN TODAY DUE TO WOUND ON INTERNAL ASPECT OF LEFT CALF. PT STATES "IT WAS NOT THERE A WEEK AGO." PT REPORTS PAIN WHEN HE "IS ON [HIS] FEET ALL DAY AT WORK." PT DENIES PAIN AT THIS TIME. DENIES NUMBNESS OR TINGLING, CMS INTACT, GROSS NEURO INTACT, DENIES LOSS OF FEELING IN FEET. PULSES PRESENT. PT PLACED ON SPO2/BP MONITORING. GIVEN WARM BLANKET FOR COMFORT.
[2020-04-09] MEDS ORDERED: ACETAMINOPHEN 500 MG TABLET PO ONE (03:00)
[2020-04-09] MEDS ORDERED: ACETAMINOPHEN 500 MG TABLET ONE (03:19)
[2020-04-09] MEDS ORDERED: DIPH,PERTUSS(ACELL),TET VAC/PF 0.5 ML IM-VACC ONE ×2 (03:20→03:30)
[2020-04-09 03:25] LABS: BASOPHILS # (AUTO) 0.06 x10^3/uL (0-0.1); BASOPHILS % (AUTO) 1 % (0-1); EOSINOPHILS # (AUTO) 0.11 x10^3/uL (0-0.4); EOSINOPHILS % (AUTO) 2 % (1-7); LYMPHOCYTES # (AUTO) 2.33 x10^3/uL (1-3.4); LYMPHOCYTES % (AUTO) 37 % (22-44); MD NO; MEAN CORPUSCULAR HEMOGLOBIN 28.9 pg (27.5-34.5); MEAN CORPUSCULAR HGB CONC 33.3 g/dL (33.2-36.2); MEAN CORPUSCULAR VOLUME 86.8 fL (81-97); MEAN PLATELET VOLUME 7.8 fL (7.4-10.4); MONOCYTES # (AUTO) 0.51 x10^3/uL (0.2-0.8); MONOCYTES % (AUTO) 8 % (2-9); NEUTROPHILS # (AUTO) 3.28 x10^3/uL (1.8-6.8); NEUTROPHILS % (AUTO) 52 % (42-75); PLATELET COUNT 332 x10^3/uL (130-400); RED BLOOD COUNT 4.78 x10^6/uL (4.38-5.82); RED CELL DISTRIBUTION WIDTH 13.5 % (9.4-14.8)
[2020-04-09 03:26] VITALS: BP 122/79
[2020-04-09] MEDS ORDERED: CEPHALEXIN 500 MG CAPSULE PO ONE (03:30)
[2020-04-09] MEDS ORDERED: SULFAMETH./TRIMETHOPRIM DS 800MG/160MG TABLET PO ONE (03:30)
[2020-04-09 03:33] LABS: ALBUMIN 3.1 g/dL (3.4-5.0); ANION GAP 7 mmol/L (5-15); CALCIUM 8.4 mg/dL (8.5-10.1); CHLORIDE 108 mmol/L (98-107); CREATININE 0.99 mg/dL (0.7-1.3)
[2020-04-09] MEDS ORDERED: CEPHALEXIN 500 MG CAPSULE ONE (03:40)
[2020-04-09] MEDS ORDERED: SULFAMETH./TRIMETHOPRIM DS 800MG/160MG TABLET ONE (03:41)
== END 2020-04-09 04:03 | disposition home or self-care (01) ==
LOC: ED 03:44
DX: S81.832D Puncture wound without foreign body, left lower leg, subsequent encounter (principal); L03.116 Cellulitis of left lower limb; Z87.891 Personal history of nicotine dependence; X58.XXXD Exposure to other specified factors, subsequent encounter
CPT/HCPCS: 36415; 80048; 82040; 85025; 90471; 90715; 99284

== ENCOUNTER 2020-05-22 23:07 | Emergency (ER) | payer OTHER ==
[~2020-05-22] VITALS: Ht 177.8 cm; Wt 88.3 kg
[2020-05-22 23:10] VITALS: BP 114/85
--- NOTE | 2020-05-23 00:17 | NUR ---
Pt reports that this RN does not know how to place an IV and that he "sucks at this and to accept it". This RN was placing and IV in left ac and pt was unable to hold still and yelled "take it out take it out" RN prior to removing cath informed pt that he felt the vein and needed to advance this and placement would be successful, pt was not aggreable to this and used profanity to insult this RN. Pt asked for a phlebotimist to place his IV who always gets it on her first try. Pt informed that he needs an IV cath [address] contrast exam and phlebotimist do not place piv's. Pt expalined the difference between a blood draw needle and a iv angiocath but not accepting of this. Pt infromed that rn is qualified to do this but continued to insult RN. RN removed himself from room. Dinesh Holland at bedside as witness. Pt has significant amount of scar tissue in his anticubital area which was avoided for placement. Pt has very poor vascular but not will not let this RN help. Pt informed that RN at this time knows how to place US PIV but continued to refuse. RN attemtped to help patient but patient is not wanting help and not tolerating needle pokes. At this time Patient is denying his PIV
--- NOTE | 2020-05-23 00:42 | NUR ---
pt upset after manasa hare attempted a iv, pt eloped er
== END 2020-05-23 00:45 | disposition left against medical advice (07) ==
LOC: ED 05-23 00:30
DX: R22.0 Localized swelling, mass and lump, head (principal); Z87.891 Personal history of nicotine dependence
CPT/HCPCS: 99281

== ENCOUNTER 2020-07-04 12:06 | Emergency (ER) | payer OTHER, MEDICAID ==
[~2020-07-04] VITALS: Ht 177.8 cm; Wt 87.0 kg
[2020-07-04 12:37] VITALS: BP 124/70
[2020-07-04] MEDS ORDERED: LIDOCAINE-MPF 1%, 5ML ONE (12:47)
--- NOTE | 2020-07-04 12:50 | NUR ---
THIS IS A 49 YO M W/ C/O ABCESS ON RT CHEEK, PT REPORTS PRONE TO ABCESSES. WAS RECENTLY ON ABX FOR SAME. PT RESTING ON GURNEY W/ CALL LIGHT IN REACH, RESP EVEN AND UNLABORED, NADN. WHIPPLE PA AT BEDSIDE FOR EVAL.
--- NOTE | 2020-07-04 12:57 | NUR ---
PT SET UP FOR I&D.
[2020-07-04] MEDS ORDERED: LIDOCAINE 1%, 10ML INFIL ONE (13:00)
--- NOTE | 2020-07-04 13:31 | NUR ---
PT REGARDING TO SPEAK W/ PA'S "[employer]" OR ANOTHER DR REGARDING CARE. UPDATED AND IN ROOM FOR RECHECK.
--- NOTE | 2020-07-04 13:55 | NUR ---
Patient given discharge instructions and they have confirmed that they understand the instructions. Patient ambulatory with steady gait.
== END 2020-07-04 13:58 | disposition home or self-care (01) ==
LOC: ED 13:39
DX: L02.01 Cutaneous abscess of face (principal); Z79.899 Other long term (current) drug therapy
CPT/HCPCS: 10060; 99283